=== PATIENT | female | born 1965 | race Caucasian/White ===

== ENCOUNTER 2019-05-28 17:25 | Emergency (ER) | payer MEDICAID ==
[~2019-05-28] VITALS: Ht 165.1 cm; Wt 81.6 kg
--- NOTE | 2019-05-28 17:34 | NUR ---
Dr Baker at the bedside for MSE.
[2019-05-28] MEDS ORDERED: TDAP DIPH,PERTUSS,TET VAC/PF 0.5 ML DISP.SYRIN IM ONE ×2 (17:43→17:45)
[2019-05-28 18:27] VITALS: BP 140/85
--- NOTE | 2019-05-28 18:28 | NUR ---
Patient discharged to home in stable conditon. Written and verbal after care instructions given. Patient verbalizes understanding of instructions.
== END 2019-05-28 18:28 | disposition home or self-care (01) ==
LOC: ER 17:28
DX: S91.332A Puncture wound without foreign body, left foot, initial encounter (principal); E78.5 Hyperlipidemia, unspecified; W45.0XXA Nail entering through skin, initial encounter; Y93.89 Activity, other specified; Y92.89 Other specified places as the place of occurrence of the external cause; Y99.8 Other external cause status
CPT/HCPCS: 73630; 90715; A4663